=== PATIENT | male | born 1970 | race Hispanic/Latino ===

== ENCOUNTER 2021-12-03 19:01 | Emergency (ER) | payer BC ==
--- NOTE | 2021-12-04 05:07 | Emergency Department Report ---
ED Lower Extremity HPI - General Chief Complaint: Extremity Problem,Nontraumatic Stated Complaint: RT FOOT SWELLING Time Seen by Provider: 12/04/21 04:46 Source: patient Mode of arrival: Ambulatory Limitations: No Limitations - History of Present Illness Initial Comments: 50-year-old male presents emerged department complaining of left reemergence of atraumatic pain to the right foot that began to the mid area acutely more around the hallux and the first metatarsophalangeal joint. He reports having multiple episodes off and on although more mild intensity and wanted to ensure there was no foreign body or infectious processes going on to the joint he reports no trauma to his knowledge -: Gradual Injury: Foot: Right, Toes: Right Type of Injury: unknown Place: home Severity: mild Improves With: nothing Worsens With: nothing Associated Symptoms: swelling, numbness, able to partially bear weight Treatments Prior to Arrival: cold therapy - Related Data Previous Rx's Medication Instructions Recorded Last Taken Type Colchicine 0.6 mg PO Q1HR #20 12/04/21 Unknown Rx Indomethacin [Indocin] 25 mg PO Q8H #20 cap 12/04/21 Unknown Rx Allergies Allergy/AdvReac Type Severity Reaction Status Date / Time Penicillins AdvReac Unknown Verified 12/03/21 20:56 ED Review of Systems ROS: Stated complaint: RT FOOT SWELLING Other details as noted in HPI Comment: All other systems reviewed and negative ED Past Medical Hx - Medications Home Medications: Home Medications Medication Instructions Recorded Confirmed Last Taken Type Colchicine 0.6 mg PO Q1HR #20 12/04/21 Unknown Rx Indomethacin [Indocin] 25 mg PO Q8H #20 cap 12/04/21 Unknown Rx ED Physical Exam - General Limitations: No Limitations General appearance: alert, in no apparent distress - Head Head exam: Present: atraumatic, normocephalic - Eye Eye exam: Present: normal appearance, PERRL, EOMI - ENT ENT exam: Present: normal exam, normal orophraynx, mucous membranes moist - Neck Neck exam: Present: normal inspection, full ROM - Respiratory Respiratory exam: Present: normal lung sounds bilaterally. Absent: respiratory distress, wheezes, rales, rhonchi, chest wall tenderness, accessory muscle use - Cardiovascular Cardiovascular Exam: Present: regular rate, normal rhythm. Absent: systolic murmur, diastolic murmur, rubs, gallop - GI/Abdominal GI/Abdominal exam: Present: soft, normal bowel sounds - Rectal Rectal exam: Present: deferred - Extremities Exam Extremities exam: Present: normal inspection, tenderness - Expanded Lower Extremity Exam Right Foot/Toe exam: Present: tenderness, swelling, erythema. Absent: calcaneal tenderness, tenderness at base of 5th metatarsal, nail avulsion 1 - Red painful swelling to this area 2 - Very small petechiae to this region 3 - General swelling - Back Exam Back exam: Present: normal inspection - Neurological Exam Neurological exam: Present: alert, oriented X3 - Psychiatric Psychiatric exam: Present: normal affect, normal mood - Skin Skin exam: Present: warm, dry, intact, normal color. Absent: rash ED Course Vital Signs 12/03/21 20:31 Temperature 99.9 F H Pulse Rate 102 H Respiratory 18 Rate Blood Pressure 141/81 O2 Sat by Pulse 97 Oximetry ED Lower Extremity MDM - Lab Data Result diagrams: 12/04/21 05:06 Critical care attestation.: If time is entered above; I have spent that time in minutes in the direct care of this critically ill patient, excluding procedure time. ED Disposition Clinical Impression: Podagra Disposition: 01 HOME / SELF CARE / HOMELESS Is pt being admited?: No Does the pt Need Aspirin: No Condition: Stable Instructions: Low-Purine Eating Plan, Crutch Use, Adult Prescriptions: Colchicine 0.6 mg PO Q1HR #20 Indomethacin [Indocin] 25 mg PO Q8H #20 cap Referrals: REYNALDO CRAFT MD [Primary Care Provider] - 3-5 Days
--- NOTE | 2021-12-04 05:32 | XRay Report ---
RIGHT FOOT 3 VIEW(S) INDICATION / CLINICAL INFORMATION: foot pain swelling COMPARISON: None available. FINDINGS: BONES / JOINT(S): No acute fracture or subluxation. No significant arthritis. Bony exostoses of the g reat toe distal phalanx. SOFT TISSUES: Minimal nonspecific swelling of soft tissues along the forefoot is suggested. ADDITIONAL FINDINGS: None. IMPRESSION: 1. No acute osseous pathology. Minimal nonspecific soft tissue swelling as detailed. Signer Name: Brenden Iqbal II, MD Signed: 12/04/2021 5:28 AM Workstation Name: [id number]
[2021-12-04 05:51] LABS: Basophils % (Auto) 0.3 % (0.0-1.8); Eosinophils # (Auto) 0.1 K/mm3 (0.0-0.4); Eosinophils % (Auto) 0.6 % (0.0-4.3); Hematocrit 41.1 % (35.5-45.6); Hemoglobin 13.5 gm/dl (11.8-15.2); Lymphocytes # (Auto) 1.3 K/mm3 (1.2-5.4); Lymphocytes % (Auto) 12.6 % (13.4-35.0); Mean Corpuscular HGB Conc 33 % (32-34); Mean Corpuscular Volume 90 fl (84-94); Monocytes # (Auto) 1.1 K/mm3 (0.0-0.8); Monocytes % (Auto) 10.4 % (0.0-7.3); Platelet Count 249 K/mm3 (140-440); Red Blood Count 4.55 M/mm3 (3.65-5.03); Red Cell Distribution Width 13.8 % (13.2-15.2)
[2021-12-04 06:52] VITALS: BP 139/83
== END 2021-12-04 06:52 | disposition home or self-care (01) ==
LOC: ED 19:01
DX: M10.9 Gout, unspecified (principal); Z88.0 Allergy status to penicillin
CPT/HCPCS: 36415; 85025; 99283